=== PATIENT | female | born 1985 | race Caucasian/White ===

== ENCOUNTER 2017-03-17 11:07 | Emergency (ER) | payer OTHER ==
[~2017-03-17] VITALS: Ht 165.1 cm; Wt 79.5 kg
[~2017-03-17 11:07] MED LIST: DIABETA2.5 MG PO; EFFEXOR25 MG PO; ENDOCET 5-3251 EACH PO; FIORICET,ESG1 TABLET PO; GLYBURIDE1.25 MG PO; GLYBURIDE5 MG PO; IBUPROFEN800 MG PO; IMITREX100 MG PO; Motrin PO; PRENATAL TABLE1 EAC3 PO; PROMETHAZINE HC25 M1 PO; Percocet 5/325,Endoc PO; SEASONALE1 EACH PO; TOPIRAMATE25 MG PO; TYLENOL EXTRA500 MG PO
[2017-03-17 12:25] LABS: HEMATOCRIT 41.4 % (36.0-46.0); MCH 28.7 PG (29.0-34.0); MCHC 33.8 G/DL (30.0-36.0); PLATELET COUNT 230 K/uL (156-360); RBC DIS.WIDTH-CV 12.9 % (11.8-14.6); RED BLOOD COUNT 4.87 M/uL (3.80-5.20); WHITE BLOOD COUNT 6.1 K/uL (4.1-10.2)
[2017-03-17 12:34] LABS: CHLORIDE 111 mEq/L (99-109); POTASSIUM 3.4 mEq/L (3.7-5.4); SODIUM 141 mEq/L (136-147)
[2017-03-17 12:37] LABS: GLUCOSE 94 mg/dL (70-99)
[2017-03-17 12:38] LABS: ANION GAP 9 MEQ/L (2-14)
[2017-03-17 12:39] LABS: TOTAL BILIRUBIN 1.9 mg/dL (0.0-1.0)
[2017-03-17 12:40] LABS: ALKALINE PHOSPHATASE 48 IU/L (3-129); GFR ESTIMATE (CALCULATED) > 59 mL/min/
[2017-03-17 12:41] LABS: UREA NITROGEN (BUN) 11 mg/dL (9-23)
[2017-03-17 12:49] LABS: QUANTITATIVE HCG < 4.0 MIU/ML
[2017-03-17] MEDS ORDERED: CITRATE OF MAG296 ML PO (17:00)
[2017-03-17 17:44] LABS: ADD MIUA? YES; BILIRUBIN NEGATIVE; BLOOD NEGATIVE; COLOR YELLOW ((YELLOW)); GLUCOSE (STRIP) NEGATIVE; KETONES NEGATIVE; LEUKOCYTES SMALL; NITRITE NEGATIVE; PROTEIN (STRIP) NEGATIVE; SPECIFIC GRAVITY 1.006 (1.000-1.030); UROBILINOGEN 0.2 MG/DL (0.2-1.0)
[2017-03-17 17:59] LABS: BACTERIA NONE SEEN /HPF; EPITHELIAL CELLS 1+ /HPF; MUCUS TRACE /LPF; RED BLOOD CELLS 0-5 /HPF (0-5); UCUL ADDED? NO; WHITE BLOOD CELLS 0-5 /HPF (0-5)
[2017-03-17 18:18] VITALS: BP 129/96
== END 2017-03-17 18:19 | disposition home or self-care (01) ==
LOC: EME 11:07
DX: K59.00 Constipation, unspecified (principal)
CPT/HCPCS: 74000; 80053; 81003; 84702; 85027